=== PATIENT | female | born 1985 | race Caucasian/White ===

== ENCOUNTER 2020-04-25 16:31 | Emergency (ER) | payer MEDICAID ==
[~2020-04-25] VITALS: Ht 165.1 cm; Wt 81.6 kg
[2020-04-25 16:43] VITALS: BP 130/88
[2020-04-25] MEDS ORDERED: KETOROLAC 30MG/ML VIAL IM ONE (17:15)
== END 2020-04-25 17:50 | disposition home or self-care (01) ==
LOC: ER 16:31
DX: S39.82XA Other specified injuries of lower back, initial encounter (principal); Y04.2XXA Assault by strike against or bumped into by another person, initial encounter; Y93.89 Activity, other specified; Y92.89 Other specified places as the place of occurrence of the external cause; Z88.1 Allergy status to other antibiotic agents; Z88.6 Allergy status to analgesic agent; Z88.5 Allergy status to narcotic agent
CPT/HCPCS: 81025; 96372; 99283; J1885